=== PATIENT | female | born 1980 | race Caucasian/White ===

== ENCOUNTER 2020-08-07 12:20 | Emergency (ER) | payer OTHER, SELFPAY ==
--- NOTE | 2020-08-07 12:36 | ED.ABDPAIN ---
HPI - Abdominal Pain General Chief Complaint: Abdominal Pain Stated Complaint: ABD Pain Time Seen by Provider: 08/07/20 12:23 Source: patient History of Present Illness HPI narrative: 40-year-old female presents to emergency department for umbilical abdominal pain that started about an hour and a half ago. Patient states she has never had pain this bad in the past before. She does not take anything for the pain. She does report some nausea, no vomiting. Unknown last bowel movement. No urinary symptoms. No vaginal bleeding or discharge. Related Data Allergies Allergy/AdvReac Type Severity Reaction Status Date / Time Sesame Seed Allergy Unknown HIVES Uncoded 02/08/16 12:07 Review of Systems Review of Systems: Narrative: CONSTITUTIONAL: Denies fever, chills, or sweats. EYES: Denies visual changes, redness, or discharge. ENT: Denies rhinorrhea, congestion, sore throat, or otalgia. CARDIOVASCULAR: Denies chest pain, palpitations, or edema. RESPIRATORY: Denies cough or dyspnea. GASTROINTESTINAL: Denies abdominal pain, nausea, vomiting, or diarrhea. GENITOURINARY: Denies dysuria or hematuria. SKIN: Denies rash or itching. MUSCULOSKELETAL: Denies back pain, joint pain, or myalgia. NEUROLOGIC: Denies headache, numbness, dizziness, or weakness. PSYCHIATRIC: Denies anxiety or depression. All systems reviewed & are unremarkable except as noted in HPI and below (ROS) Exam Narrative: Exam Narrative: GENERAL: Well-appearing, well-nourished, and in no acute distress. HEAD: Normocephalic, atraumatic. EYES: PERRLA and EOMI. ENT: Nares clear, no rhinorrhea or epistaxis. Mucous membranes moist. NECK: Supple. CHEST: Clear to auscultation. No respiratory distress. HEART: Regular rate and rhythm. No murmur heard. Normal peripheral pulses. ABDOMEN: Umbilical TTP EXTREMITIES: Normal range of motion. No edema. SKIN: Warm, dry, no rash. NEURO: No focal deficits. Alert and oriented x3. PSYCH: Normal mood and affect. Procedures Other Procedure Procedure 1: Other Procedure: Umbilical hernia reduced at bedside Course Reevaluation(s) Reevaluation #1: 4080 -reevaluated patient, no current abdominal pain after hernia was reduced. Counseled patient to follow-up with her medical provider later this week, as she may need a referral to a surgeon. She has had this hernia for about 5 years. Counseled patient to return to emergency department if unable to reduce hernia, worsening pain, persisting pain, or other concerns. Vital Signs Vital signs: Vital Signs Temperature 36.6 C 08/07/20 13:18 Pulse Rate 72 08/07/20 13:18 Respiratory Rate 20 08/07/20 13:18 Blood Pressure 103/73 08/07/20 13:18 Pulse Oximetry 99 08/07/20 13:18 Temperature 36.7 C 08/07/20 15:35 Pulse Rate 68 08/07/20 15:35 Respiratory Rate 18 08/07/20 15:35 Blood Pressure 124/78 08/07/20 15:35 Pulse Oximetry 99 08/07/20 15:35 MDM - Abdominal Pain Medical Records Attestation: I reviewed the patient's medical records. Lab Data Attestation: I reviewed the patient's lab results. Result diagrams: 08/07/20 12:43 08/07/20 12:43 Labs: Lab Results 08/07/20 08/07/20 Range/Units 12:43 12:43 WBC 10.9 H (4.5-10.0) K/mm3 RBC 4.96 (4.2-5.4) M/mm3 Hgb 15.6 H (12.0-15.0) g/dL Hct 45.6 (37.0-47.0) % MCV 91.9 (80-100) fl MCH 31.5 (26-34) pg MCHC 34.2 (32-36) g/dl RDW 11.9 (11.5-14.5) % Plt Count 270 (150-375) k/mm3 MPV 9.5 (7.4-10.4) fl Immature Gran % (Auto) 0.3 (0-0.5) % Neut % (Auto) 77.8 H (45.5-73.1) % Lymph % (Auto) 16.9 L (18.3-44.2) % [place] % (Auto) 4.0 (2.6-8.5) % Eos % (Auto) 0.5 (0-4.4) % Baso % (Auto) 0.5 (0.2-1.2) % Lymph # (Auto) 1.84 (0.9-3.2) K/mm3 [place] # (Auto) 0.4 (0.1-0.6) K/mm3 Eos # (Auto) 0.1 (0-0.3) K/mm3 Baso # (Auto) 0.1 (0.0-0.1) K/mm3 Abs Immat Gran (auto) 0.03 (0.00-0.031) K/mm3 Absolute Neuts (auto) 8.
[2020-08-07 12:53] LABS: Basophils Absolute Auto 0.1 K/mm3 (0.0-0.1); Basophils Percent Auto 0.5 % (0.2-1.2); Eosinophils Absolute Auto 0.1 K/mm3 (0-0.3); Eosinophils Percent Auto 0.5 % (0-4.4); Hematocrit 45.6 % (37.0-47.0); Hemoglobin 15.6 g/dL (12.0-15.0); Immature Granulocyte Absolute 0.03 K/mm3 (0.00-0.031); Immature Granulocyte Percent A 0.3 % (0-0.5); Lymphocytes Absolute Auto 1.84 K/mm3 (0.9-3.2); Lymphocytes Percent Auto 16.9 % (18.3-44.2); Mean Corpuscular HGB Conc 34.2 g/dl (32-36); Mean Corpuscular Hemoglobin 31.5 pg (26-34); Mean Corpuscular Volume 91.9 fl (80-100); Mean Platelet Volume 9.5 fl (7.4-10.4); Monocytes Absolute Auto 0.4 K/mm3 (0.1-0.6); Neutrophils Absolute Auto 8.5 K/mm3 (1.3-6.7); Neutrophils Percent Auto 77.8 % (45.5-73.1); Platelet Count Result 270 k/mm3 (150-375); Red Blood Count 4.96 M/mm3 (4.2-5.4); Red Cell Distribution Width 11.9 % (11.5-14.5); White Blood Count 10.9 K/mm3 (4.5-10.0)
[2020-08-07 13:06] LABS: Alanine Aminotransferase 23 U/L (4-35); Albumin Level 4.8 g/dL (3.5-5.1); Alkaline Phosphatase 52 U/L (38-126); Anion Gap 8 mmol/L (8-16); Aspartate Amino Transferase 34 U/L (14-36); Blood Urea Nitrogen 11 mg/dL (7-17); Calcium 9.2 mg/dL (8.4-10.2); Carbon Dioxide 29 mmol/L (22-30); Chloride 99 mmol/L (98-107); Estimated Glomerular Filt Rate > 60; Glucose 114 mg/dL (65-105); Lipase 85 U/L (23-300); Potassium 3.8 mmol/L (3.4-5.0); Sodium 136 mmol/L (137-145)
[2020-08-07] MEDS: SODIUM CHLORIDE 0.9% IV 1,000 ML 999 ML IV CONT (13:17)
[2020-08-07] MEDS: KETOROLAC 30 MG/ML VIAL (*BKC) 15 MG IV PUSH (13:17)
[2020-08-07 13:18] VITALS: BP 103/73; PULSE 72; RESP 20; TEMP 36.6; O2SAT 99
[2020-08-07] MEDS: ONDANSETRON INJ 4 MG/2 ML VIAL IV PUSH (13:18)
[2020-08-07 15:35] VITALS: BP 124/78; PULSE 68; RESP 18; TEMP 36.7; O2SAT 99
== END 2020-08-07 15:36 | disposition home or self-care (01) ==
PROVIDERS: Emergency Provider Emergency Medicine
DX: K42.9 Umbilical hernia without obstruction or gangrene (principal)
CPT/HCPCS: 36415; 80053; 83690; 85025; 96361; 96374; 96375; 99284; J1885; J2405; J7030

== ENCOUNTER 2021-02-19 17:37 | Emergency (ER) | payer OTHER, SELFPAY ==
--- NOTE | ~2021-02-19 | XR_ITS ---
EXAMINATION: XR hand LT min 3V INDICATION: Left hand pain, dog bite TECHNIQUE: Three views of the left hand are obtained. COMPARISON: None available FINDINGS: Bone alignment is normal. There is no fracture. Mild soft tissue swelling is noted in the f ourth finger. There is no radiopaque foreign body. IMPRESSION: 1. No acute osseous abnormality. Reviewed, dictated and finalized at location A.
[2021-02-19 17:51] VITALS: BP 102/56; PULSE 70; RESP 14; TEMP 36.3; O2SAT 99
--- NOTE | 2021-02-19 18:49 | ED_ITS ---
HPI - Animal Bite General Chief Complaint: Animal Bite Stated Complaint: Dog bite Time Seen by Provider: 02/19/21 18:42 History of Present Illness HPI narrative: 40 yo female w/ no significant medical history presents to the ED after adog bite. 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 Today a dog lunged and bite her left forearm. She has a small wound and mild swelling at this site. She also has moderate pain in the left 5th MCP. She believes that she may have struck it on something trying to avoid the dog. Unsure of last tetanus shot. Related Data Allergies Allergy/AdvReac Type Severity Reaction Status Date / Time sesame seed Allergy Unknown Hives Verified 02/19/21 18:56 Review of Systems Review of Systems: All systems reviewed & are unremarkable except as noted in HPI and below Constitutional: Constitutional: Denies chills, Denies fever(s) and Denies weakness Cardiovascular: Cardiovascular: Denies chest pain Respiratory: Respiratory: Denies dyspnea Gastrointestinal: Gastrointestinal: Denies nausea Musculoskeletal: Musculoskeletal: Denies back pain Neurologic: Denies numbness and Denies weakness [facility] Social History Social History (Updated 02/19/21 @ 18:53 by Graham Candelaria MD) Occupation/Education: occupation Additional occupation/education comments: [employer] Exam Const: General: healthy appearing, no acute distress and alert Orientat ion/consciousness: patient oriented x3 HENMT: Head: normal to inspection Cardio: Rate: regular rate Other: 2+ left radial Skin: Other: small puncture to left forearm Neuro: General: patient oriented x3, moves all extremities, no focal motor deficits and CN's II-XI intact bilaterally Speech: normal speech Gait exam (Neuro): Normal gait present Extrem: Other: Mild swelling over left 5th MCP. Full ROM. Course Vital Signs Vital signs: Vital Signs Temperature 36.3 C L 02/19/21 17:51 Pulse Rate 70 02/19/21 17:51 Respiratory Rate 14 02/19/21 17:51 Blood Pressure 102/56 L 02/19/21 17:51 Pulse Oximetry 99 02/19/21 17:51 Temperature 36.3 C L 02/19/21 17:51 Pulse Rate 70 02/19/21 17:51 Respiratory Rate 14 02/19/21 17:51 Blood Pressure 102/56 L 02/19/21 17:51 Pulse Oximetry 99 02/19/21 17:51 MDM - Animal Bite MDM Narrative Medical decision making narrative: tetanus updated. wound irrigated. Closure not indicated Differential Diagnosis Differential diagnosis: Likely dog bite Medical Records Attestation: I reviewed the patient's medical records. Discharge Plan Discharge Clinical Impression: Dog bite Patient Disposition: Home, Self-Care Condition: Stable Instructions: Antibiotic Form, Animal Bite (ED) Prescriptions: New amoxicillin-pot clavulanate [Augmentin] 875-125 mg tablet 1 tablet PO Q12H Qty: 10 RF: 0 Follow-up/Referrals: Mike Springer MD [Primary Care Provider] -
[2021-02-19] MEDS: TETANUS,DIPHTHERIA,AC PERTUSSIS ADULT (0.5 ML) BOOSTRIX IM (18:59)
[2021-02-19] MEDS: AMOXICILLIN/CLAVULANATE K 875-125 MG TAB 1 TABLET PO (18:59)
== END 2021-02-19 20:02 | disposition home or self-care (01) ==
PROVIDERS: Emergency Provider Emergency Medicine; PCP Emergency Medicine
DX: S51.852A Open bite of left forearm, initial encounter (principal); Z23 Encounter for immunization; W54.0XXA Bitten by dog, initial encounter
CPT/HCPCS: 73130; 90471; 90715; 99283; A9270